=== PATIENT | male | born 1990 | race Caucasian/White ===

== ENCOUNTER 2022-07-05 04:37 | Day surgery (SDC) | payer OTHER ==
[2022-07-01 17:41] VITALS: BMI 32.4
[2022-07-05 10:23] LABS: BASO % 0.5 % (0-2.0); EOS % 1.4 % (0-4.5); HEMATOCRIT 44.9 % (35.4-49); HEMOGLOBIN 15.3 GM/dL (11.7-16.9); LYMPH % 30.8 % (8-40); MCH 30.7 pg (25.7-33.7); MEAN CELL VOLUME 90.3 fl (80-96); MEAN PLT VOLUME 8.8 fl (7.5-11.1); MONO % 9.3 % (3.8-10.2); PLATELET COUNT 242 10^3/uL (134-434); RBC 4.97 M/mm3 (4.00-5.60); RDW 13.2 % (11.9-15.9); WHITE BLOOD COUNT 7.5 K/mm3 (4.0-10.0)
[2022-07-05 10:31] LABS: INR 1.31 (0.83-1.09); PROTHROMBIN TIME (PATIENT) 15.1 SEC (9.7-13.0)
[2022-07-05] MEDS ORDERED: ACETAMINOPHEN 325 MG TABLET (FP) PO ONE (12:45)
[2022-07-05] MEDS ORDERED: ACETAMINOPHEN 325 MG TABLET (FP) ONE (12:47)
[2022-07-05 14:57] VITALS: BP 119/56; PULSE 60; RESP 16; TEMP 98.1
== END 2022-07-05 14:40 | disposition home or self-care (01) ==
LOC: JRADIR 04:37
PROVIDERS: ATTEND Psychiatry & Neurology Neurology
PROC: 009U3ZX Drainage of Spinal Canal, Percutaneous Approach, Diagnostic (ICD-10-PCS; principal; 2022-07-05)
DX: G35 Multiple sclerosis (principal)
CPT/HCPCS: 36415; 62272; 82784; 83873; 83916; 85025; 85610